=== PATIENT | male | born 1985 | race Caucasian/White ===

== ENCOUNTER 2017-02-16 21:01 | Emergency (ER) | payer OTHER ==
[~2017-02-16] VITALS: Ht 180.3 cm; Wt 79.5 kg
[2017-02-16 21:02] VITALS: BP 135/86
[2017-02-16] MEDS ORDERED: KETOROLAC 30 MG/ML VIAL (J1885) IV ONE (21:30)
[2017-02-16 22:06] LABS: BASO % 0.7 % (0.0-1.0); EOS # 0.1 K/mm3 (0.0-0.50); EOS % 2.7 % (0.0-3.0); LARGE UNSTAINED CELL # 0.1 K/mm3 (0.0-0.4); LARGE UNSTAINED CELL % 2.5 % (0.0-4.0); LYMPH # 2.2 K/mm3 (1.5-4.5); LYMPH % 43.1 % (24.0-44.0); MEAN CORPUSCULAR HEMOGLOBIN 31.2 pg (27.0-33.0); MEAN CORPUSCULAR HGB CONC 34.1 g/dl (32.0-36.5); MEAN CORPUSCULAR VOLUME 91.7 fl (80.0-96.0); MONO # 0.3 K/mm3 (0.0-0.8); MONO % 5.9 % (0.0-5.0); NEUTROPHILS # 2.2 K/mm3 (1.8-7.7); NEUTROPHILS % 45.1 % (36.0-66.0); PLATELET COUNT, AUTOMATED 228 k/mm3 (150-450); RED CELL DISTRIBUTION WIDTH 12.9 % (11.5-14.5); WHITE BLOOD COUNT 4.8 K/mm3 (4.0-10.0)
[2017-02-16 22:39] LABS: ALBUMIN 3.9 GM/DL (3.2-5.2); ALBUMIN/GLOBULIN RATIO 1.34 (1.00-1.93); ALKALINE PHOSPHATASE 93 U/L (45-117); ALT/SGPT 16 U/L (12-78); ANION GAP 7 MEQ/L (8-16); AST/SGOT 19 U/L (15-37); BILIRUBIN,DIRECT < 0.1 MG/DL (0.0-0.2); BILIRUBIN,TOTAL 0.3 MG/DL (0.2-1.0); BLOOD UREA NITROGEN 16 MG/DL (7-18); CALCIUM LEVEL 8.8 MG/DL (8.5-10.1); CARBON DIOXIDE LEVEL 30 MEQ/L (21-32); CHLORIDE LEVEL 104 MEQ/L (98-107); CREATININE FOR GFR 0.88 MG/DL (0.70-1.30); GLOMERULAR FILTRATION RATE > 60.0 (>60); GLUCOSE, FASTING 104 MG/DL (70-105); SODIUM LEVEL 141 MEQ/L (136-145); TOTAL PROTEIN 6.8 GM/DL (6.4-8.2)
--- NOTE | 2017-02-17 02:09 | REP ---
Clinical: Chest pain . Comparison: None . Technique: PA and lateral. Findings: The mediastinum and cardiac silhouette are normal. The lung beltrán are clear and without acute consolidation, effusion, or pneumothorax. The skeletal structures are intact and normal. Impression: 1. No acute cardiopulmonary process. Signed by Margarito Hardy MD 02/17/2017 02:00 A
--- NOTE | 2017-02-17 18:17 | ECGEPIP ---
Stationary ECG Study [facility] - ED Test Date: 2017-02-16 Pat Name: TREVIN FOX Department: Room: - Gender: M Entry Clerk: desire : 1985 Requested By: Richardson Andrea Order Number: [id number] Reading MD: Richardson Murdock Measurements Intervals [place] Rate: 50 P: 51 NV: 159 QRS: 77 QRSD: 106 T: 57 QT: 422 QTc: 386 Interpretive Statements SINUS BRADYCARDIA WITH SINUS ARRHYTHMIA Electronically Signed On 02-17-2017 18:17:10 EDT by Richardson Murdock
== END 2017-02-16 23:04 | disposition home or self-care (01) ==
LOC: M ED 21:01
DX: R07.89 Other chest pain (principal)
CPT/HCPCS: 71020; 80048; 80076; 82550; 82553; 83690; 84443; 85025; 93005; 96374; 99283; J1885

== ENCOUNTER → 2017-03-25 | Outpatient (CLI) | payer OTHER ==
--- NOTE | 2017-03-25 21:06 | ECHO ---
DATE OF PROCEDURE: 03/25/2017 REFERRING PHYSICIAN: Dr. David Orozco. Study was performed on 03/25/2017 on an outpatient basis for indication chest pain. The patient measures 180 cm and weighs 77 kg. DIMENSIONS: IVS: 1.0 LV: 4.9 LVPW: 1.0 LA: 3.7 Aorta: 3.0 FINDINGS: The study is of acceptable technical quality. There were good quality parasternal views but fair apical views and fair subcostal views. Left ventricle is of normal size and systolic function with estimated ejection fraction (EF) 60-65%. Right ventricle is also normal size. Both atria appear normal. All four cardiac valves were well seen and appear normal. No pericardial effusion is noted. Inferior vena cava is normal size. Aortic root, aortic arch and visualized segment of abdominal aorta appear normal. Doppler interrogation of aortic valve reveals no stenosis or insufficiency. Same applies for mitral, tricuspid valves. There is trivial tricuspid insufficiency. Mitral inflow pattern and tissue Doppler imaging of mitral annulus revealed normal diastolic function of left ventricle (E prime velocities of septal and lateral mitral annulus were 10.1 and 18.7 cm/s respectively). CONCLUSIONS: 1. Study is of acceptable technical quality. 2. Normal left ventricular (LV) size, systolic and diastolic function. 3. No valvular disease. 4. Normal central venous pressure. 5. Unable to estimate pulmonary artery pressure but no signs to suggest pulmonary hypertension. 6. Essentially normal echocardiogram. COMMENTS: Subacute bacterial endocarditis (SBE) prophylaxis is not recommended. Study does not provide explanation for chest pain.
== END ==
LOC: M CARPUL 15:54
PROVIDERS: ATTEND Family Medicine
DX: R07.9 Chest pain, unspecified (principal)